=== PATIENT | male | born 1990 | race Caucasian/White ===

== ENCOUNTER 2021-07-19 08:03 | Emergency (ER) | payer MEDICARE, MEDICAID ==
[~2021-07-19] VITALS: Ht 185.4 cm; Wt 86.4 kg
[~2021-07-19 08:03] MED LIST: ALBU18HF2 IH; CETI-1 PO; CYCL-394 PO; HYDR1TAB PO; NO HOME MEDS
[2021-07-19 08:25] VITALS: BP 132/76
== END 2021-07-19 11:07 | disposition home or self-care (01) ==
LOC: ER 08:04
DX: S93.491A Sprain of other ligament of right ankle, initial encounter (principal); F12.10 Cannabis abuse, uncomplicated; Z88.0 Allergy status to penicillin; Z79.899 Other long term (current) drug therapy; X50.9XXA Other and unspecified overexertion or strenuous movements or postures, initial encounter; Y93.89 Activity, other specified; Y92.89 Other specified places as the place of occurrence of the external cause; Y99.8 Other external cause status
CPT/HCPCS: 73610; 99283

== ENCOUNTER 2023-03-06 13:53 | Emergency (ER) | payer MEDICARE, MEDICAID ==
[~2023-03-06] VITALS: Ht 185.4 cm; Wt 88.3 kg
[2023-03-06 13:59] VITALS: BP 111/67; PULSE 71; TEMP 98.5; O2SAT 99
[2023-03-06] MEDS ORDERED: ketorolac trometh. 30mg/ml inj. IM ONE (14:25)
[2023-03-06] MEDS ORDERED: IBUP-1984 PO (14:29)
[2023-03-06] MEDS ORDERED: AZIT-103 PO (14:29)
[2023-03-06] MEDS ORDERED: POLOS EACHEYE ×2 (14:29)
[2023-03-06 14:43] VITALS: RESP 18
[2023-03-06] MEDS ORDERED: NEOM10DR45 LEFT EAR (14:53)
== END 2023-03-06 14:50 | disposition home or self-care (01) ==
LOC: ER 13:53
DX: H60.92 Unspecified otitis externa, left ear (principal); H66.92 Otitis media, unspecified, left ear; F12.10 Cannabis abuse, uncomplicated; Z88.1 Allergy status to other antibiotic agents; Z79.899 Other long term (current) drug therapy
CPT/HCPCS: 96372; 99283; J1885